=== PATIENT | female | born 1995 ===

== ENCOUNTER → 2023-05-10 | Outpatient (CLI) | payer SELFPAY ==
[2023-05-10 15:26] LABS: BASOPHILS ABSOLUTE AUTO 0.05 K/mm3 (0.00-0.23); BASOPHILS PERCENT AUTO 1 % (0-2); EOSINOPHILS ABSOLUTE AUTO 0.17 K/mm3 (0.00-0.68); EOSINOPHILS PERCENT AUTO 2 % (0-6); Hematocrit 41.7 % (33.0-51.0); IMMATURE GRAN ABSOLUTE AUTO 0.02 K/mm3 (0.00-0.10); IMMATURE GRAN PERCENT AUTO 0 % (0-1); LYMPHOCYTES ABSOLUTE AUTO 3.27 K/mm3 (0.84-5.20); LYMPHOCYTES PERCENT AUTO 42 % (21-46); MONOCYTES ABSOLUTE AUTO 0.65 K/mm3 (0.16-1.47); MONOCYTES PERCENT AUTO 8 % (4-13); Mean Corpuscular HGB 31.5 pg (26.0-34.0); Mean Corpuscular HGB Conc 33.6 g/dL (31.5-36.5); Mean Corpuscular Volume 94 fL (80-100); NEUTROPHILS ABSOLUTE AUTO 3.61 K/mm3 (1.96-9.15); NEUTROPHILS PERCENT AUTO 46 % (41-73); RDW Coefficient Variation 12.1 % (11.7-14.2); RDW Standard Deviation 41.5 fL (35.1-46.3); Red Blood Cell Count 4.45 M/mm3 (3.80-5.20)
[2023-05-10 15:34] LABS: Platelet Count 260 K/mm3 (150-400)
[2023-05-10 15:36] LABS: Mean Platelet Volume 9.6 fL (9.1-12.4)
== END | disposition home or self-care (01) ==
LOC: LAB SHORT 15:22
PROVIDERS: Physician Assistant
DX: R79.89 Other specified abnormal findings of blood chemistry (principal)
CPT/HCPCS: 85025

== ENCOUNTER → 2024-03-25 | Outpatient (CLI) | payer OTHER | END | disposition home or self-care (01) | LOC: LAB 10:40 → LAB SHORT 10:40 | DX: R30.0 Dysuria (principal) | CPT/HCPCS: 87086 ==

== ENCOUNTER → 2025-03-24 | Outpatient (CLI) | payer OTHER | END | disposition home or self-care (01) | LOC: LAB SHORT 10:07 → LAB 10:07 | DX: Z34.91 Encounter for supervision of normal pregnancy, unspecified, first trimester (principal) | CPT/HCPCS: 84702 ==

== ENCOUNTER → 2025-04-07 | Outpatient (CLI) | payer OTHER ==
[2025-04-07 19:38] LABS: BASOPHILS ABSOLUTE AUTO 0.07 K/mm3 (0.00-0.23); BASOPHILS PERCENT AUTO 1 % (0-2); EOSINOPHILS ABSOLUTE AUTO 0.16 K/mm3 (0.00-0.68); EOSINOPHILS PERCENT AUTO 1 % (0-6); Hematocrit 41.8 % (33.0-51.0); Hemoglobin 14.0 g/dL (11.5-16.0); IMMATURE GRAN ABSOLUTE AUTO 0.05 K/mm3 (0.00-0.10); IMMATURE GRAN PERCENT AUTO 0 % (0-1); LYMPHOCYTES ABSOLUTE AUTO 3.05 K/mm3 (0.84-5.20); LYMPHOCYTES PERCENT AUTO 23 % (21-46); MONOCYTES ABSOLUTE AUTO 1.34 K/mm3 (0.16-1.47); MONOCYTES PERCENT AUTO 10 % (4-13); Mean Corpuscular HGB Conc 33.5 g/dL (31.5-36.5); Mean Corpuscular Volume 93 fL (80-100); NEUTROPHILS ABSOLUTE AUTO 8.75 K/mm3 (1.96-9.15); NEUTROPHILS PERCENT AUTO 65 % (41-73); NRBC ABSOLUTE 0.00 K/mm3 (0.00-0.02); NRBC Auto 0.0 /100 WBC (0.0-0.2); Platelet Count 284 K/mm3 (150-400); RDW Coefficient Variation 12.3 % (11.7-14.2); RDW Standard Deviation 42.3 fL (35.1-46.3)
== END ==
LOC: LAB SHORT 15:10 → LAB 15:10
PROVIDERS: Obstetrics & Gynecology
DX: Z34.90 Encounter for supervision of normal pregnancy, unspecified, unspecified trimester (principal)
CPT/HCPCS: 85025